=== PATIENT | male | born 1970 | race Caucasian/White ===

== ENCOUNTER 2019-07-31 17:58 | Emergency (ER) | payer MEDICAID, OTHER ==
[~2019-07-31] VITALS: Ht 180.3 cm; Wt 73.0 kg
[2019-07-31 19:12] LABS: BASOPHILS % (AUTO) 0.6 % (0-1); EOSINOPHILS # (AUTO) 0.1 X10'3 (0-0.9); EOSINOPHILS % (AUTO) 1.5 % (0-6); HEMATOCRIT 41.8 % (42.0-52.0); HEMOGLOBIN 14.6 g/dl (14.0-17.9); LYMPHOCYTES # (AUTO) 1.3 X10'3 (1.1-4.8); LYMPHOCYTES % (AUTO) 18.5 % (21-51); MEAN CORPUSCULAR HEMOGLOBIN 32.4 PG (27.0-31.0); MEAN CORPUSCULAR VOLUME 92.7 FL (78-98); MEAN PLATELET VOLUME 8.6 FL (7.4-10.4); MONOCYTES # (AUTO) 0.6 X10'3 (0-0.9); NEUTROPHILS % (AUTO) 70.4 % (42-75); PLATELET COUNT 258 X10'3 (140-440); WHITE BLOOD COUNT 7.1 X10'3 (4.5-11.0)
[2019-07-31] MEDS ORDERED: LIDOcaine/PRILOcaine 5gm cream TP ONE (21:55)
[2019-07-31] MEDS ORDERED: LIDOcaine 1% W/epiNEPHrine 1:100,000 20ml vial SQ ONE (22:40)
[2019-07-31] MEDS ORDERED: PROCHC RC (23:21)
[2019-07-31 23:43] VITALS: BP 135/77
== END 2019-07-31 23:45 | disposition home or self-care (01) ==
LOC: ER 17:59
DX: K64.5 Perianal venous thrombosis (principal); G89.29 Other chronic pain; Z79.899 Other long term (current) drug therapy
CPT/HCPCS: 36415; 46083; 85025; 99284

== ENCOUNTER 2023-06-04 15:05 | Emergency (ER) | payer MEDICAID ==
[~2023-06-04] VITALS: Ht 177.8 cm; Wt 68.2 kg
[~2023-06-04 15:05] MED LIST: PROCHC RC
[2023-06-04 15:09] VITALS: BP 129/93; PULSE 125; RESP 16; TEMP 98; O2SAT 98
[2023-06-04] MEDS ORDERED: PERM60CR4 TOP (15:21)
== END 2023-06-04 15:43 | disposition home or self-care (01) ==
LOC: ER 15:06
DX: B86 Scabies (principal)
CPT/HCPCS: 99283